=== PATIENT | female | born 1995 | race American Indian/Alaskan Native ===

== ENCOUNTER 2017-08-31 13:25 | Emergency (ER) | payer OTHER ==
[2017-08-31 13:56] VITALS: BP 120/82; PULSE 66; RESP 20; TEMP 98.2; O2SAT 100
--- NOTE | 2017-08-31 15:53 | C.PDOC ---
History Of Present Illness PT WAS CALLED THREE TIMES IN ALL AREA OF ED WITHOUT ANSWER. PT ELOPED PRIOR THE MEDICAL EVALUATION. Time Seen by Provider: 08/31/17 14:38 Chief Complaint (Nursing): Abdominal Pain Past Medical History Vital Signs: Last Vital Signs Temp 98.2 F 08/31/17 13:52 Pulse 66 08/31/17 13:52 Resp 20 08/31/17 13:52 BP 120/82 08/31/17 13:52 Pulse Ox 100 08/31/17 13:52 Family History: States: Unknown Family Hx - Social History Hx Tobacco Use: No Hx Alcohol Use: No Hx Substance Use: Yes - Immunization History Hx Tetanus Toxoid Vaccination: No Hx Influenza Vaccination: No Hx Pneumococcal Vaccination: No ED Course And Treatment O2 Sat by Pulse Oximetry: 100 Disposition - Disposition Disposition: LEFT W/O BEING SEEN - ER ONLY Disposition Time: 14:40 Condition: STABLE Forms: [facility] (Angolan) - Clinical Impression Clinical Impression: Abdominal pain
== END 2017-08-31 14:38 | disposition left against medical advice (07) ==
LOC: C.ER 13:25
DX: Z02.89 Encounter for other administrative examinations (principal); R10.9 Unspecified abdominal pain

== ENCOUNTER 2017-08-31 14:43 | Emergency (ER) | payer OTHER ==
[2017-08-31 14:55] VITALS: PULSE 67; O2SAT 100
[2017-08-31 15:15] LABS: RBC URINE 326 /hpf (0-3); URINE BACTERIA RARE (<OCC); URINE BILIRUBIN NEGATIVE (NEGATIVE); URINE BLOOD 3+ (NEGATIVE); URINE COLOR Yellow (YELLOW); URINE GLUCOSE (UA) NORMAL (Normal); URINE KETONE NEGATIVE (NEGATIVE); URINE LEUKOCYTE ESTERASE NEG Leu/uL (Negative); URINE PROTEIN 1+ mg/dL (NEGATIVE); WBC URINE 8 /hpf (0-5)
--- NOTE | 2017-08-31 15:15 | C.PDOC ---
History Of Present Illness 22 year old female presents to the ED for evaluation of right-sided lower pelvic pain x 2 days. Patient has history of right ovarian cyst; last US showed 4cm right-sided cyst on 07/2017. Patient's LMP was on 08/15. Patient admits to vaginal bleeding yesterday. She denies fever, chills, nausea, vomiting, diarrhea. R LOWER PELVIC PAIN X 2 DAYS. HO R OVARIAN CYST, LAST US 4 CM R SIDE IN 07/2017. LMP 08/15. +VB YESTERDAY. NO FEVER, NVD EXAM MILD DIST NONTOXIC ABD NEG +R PELVIC TEND SOFT NO R/G Time Seen by Provider: 08/31/17 14:54 Chief Complaint (Nursing): Abdominal Pain History Per: Patient History/Exam Limitations: no limitations Onset/Duration Of Symptoms: Days (2) Current Symptoms Are (Timing): Still Present Quality Of Discomfort: "Pain" Associated Symptoms: denies: Fever, Chills, Nausea, Vomiting, Diarrhea Additional History Per: Patient Abnormal Vaginal Bleeding: Yes Last Menstral Period: 08/15/2017 Past Medical History Reviewed: Historical Data, Nursing Documentation, Vital Signs Vital Signs: Last Vital Signs Temp 97.9 F 08/31/17 16:49 Pulse 67 08/31/17 16:49 Resp 20 08/31/17 16:49 BP 105/68 08/31/17 16:49 Pulse Ox 100 08/31/17 23:57 - Medical History PMH: No Chronic Diseases Surgical History: No Surg Hx Family History: States: Unknown Family Hx - Social History Hx Tobacco Use: No Hx Alcohol Use: No Hx Substance Use: Yes - Immunization History Hx Tetanus Toxoid Vaccination: No Hx Influenza Vaccination: No Hx Pneumococcal Vaccination: No Review Of Systems Constitutional: Negative for: Fever, Chills Gastrointestinal: Negative for: Nausea, Vomiting, Diarrhea Genitourinary: Positive for: Vaginal Bleeding, Pelvic Pain (right-sided, lower ) Physical Exam - Physical Exam Appears: Non-toxic, Other (in mild distress ) Skin: Normal Color, Warm, Dry Eye(s): bilateral: Normal Inspection Oral Mucosa: Moist Neck: Supple Chest: Symmetrical, No Deformity, No Tenderness Cardiovascular: Rhythm Regular Respiratory: Normal Breath Sounds Gastrointestinal/Abdominal: Soft, No Tenderness, No Guarding, No Rebound Pelvic: Other (right-sided tenderness) Extremity: Normal ROM Neurological/Psych: Oriented x3, Normal Speech, Normal Cognition Gait: Steady ED Course And Treatment - Laboratory Results Result Diagrams: 08/31/17 15:24 08/31/17 15:24 Urine POC: Negative O2 Sat by Pulse Oximetry: 100 (on RA) Pulse Ox Interpretation: Normal - Other Rad abd/pel/transvaginal US X-Ray: Interpreted by Me, Viewed By Me, Read By Radiologist Interpretation: HISTORY: pain ro torsion. COMPARISON: None available. TECHNIQUE: Transabdominal and transvaginal. FINDINGS: UTERUS: Measures 7.9 x 3.7 x 4.1 cm. Normal in size and appearance. No fibroid or other mass lesion seen. ENDOMETRIUM: Measures 6 mm in diameter. No intrauterine gestational sac identified. CERVIX: No cervical abnormality identified. RIGHT OVARY: Measures 3.9 x 2.1 x 3.7 cm. No solid mass. Normal flow. 1.4 cm corpus luteum cyst. LEFT OVARY: Measures 2.7 x 2.1 x 2.0 cm. No solid mass. Normal flow. FREE FLUID: Small amount of fluid in cul-de-sac/. OTHER FINDINGS: None. IMPRESSION: No intrauterine gestational sac. Please correlate with serial beta HCG evaluation. Cannot exclude ectopic gestation in the absence of an intrauterine gestation. No evidence of ovarian torsion. Progress Note: Labs, Pelvis US, Transvaginal US ordered and reviewed. Morphine IVP, Toradol IVP, and Zofran IVP ordered. Disposition Counseled Patient/Family Regarding: Studies Performed, Diagnosis, Need For Followup, Rx Given - Disposition Referrals: YOUR,OBGYN [Other] Disposition: HOME/ ROUTINE Disposition Time: 16:55 Condition: IMPROVED Prescriptions: Acetaminophen/Codeine [Tylenol/Codeine 300 MG/30 MG] 2 tab PO Q6H #20 tab Ibuprofen [Motrin] 600 mg PO Q6 #30 tab Instructions: Ovarian Cyst (ED) Forms: [facility] (Lao), School Excuse - Clinical Impression Clinical Impression: Ovarian cyst - Scribe Statement The provider has reviewed the documentation as recorded by the Scribe (Erika Baird) Provider Attestation: All medical record entries made by the Scribe were at my direction and personally dictated by me. I have reviewed the chart and agree that the record accurately reflects my personal performance of the history, physical exam, medical decision making, and the department course for this patient. I have also personally directed, reviewed, and agree with the discharge instructions and disposition.
[2017-08-31 15:30] LABS: BASO % 0.4 % (0.0-2.0); EOS # 0.1 K/uL (0.0-0.7); EOS % 2.3 % (0.0-4.0); HEMATOCRIT 36.7 % (34.0-47.0); LYMPH # 1.5 K/uL (1.0-4.3); LYMPH % 23.4 % (20.0-40.0); MEAN CELL VOLUME 83.6 fL (81.0-99.0); MEAN CORPUSCULAR HEMOGLOBIN 27.6 pg (27.0-31.0); MEAN PLATELET VOLUME 8.5 fL (7.2-11.7); MONO # 0.9 K/uL (0.0-0.8); MONO % 14.1 % (0.0-10.0); RED CELL DISTRIBUTION WIDTH 14.3 % (11.5-14.5); WHITE BLOOD COUNT 6.5 K/uL (4.8-10.8)
[2017-08-31 15:37] LABS: CHLORIDE 102 mmol/L (98-107); POTASSIUM 3.5 mmol/L (3.6-5.2); SODIUM 134 mmol/L (132-148)
[2017-08-31 15:40] LABS: BLOOD UREA NITROGEN 10 mg/dL (7-17); CALCIUM 9.2 mg/dl (8.6-10.4); CARBON DIOXIDE 24 mmol/L (22-30); GFR AFRICAN-AMERICAN > 60; GLUCOSE,RANDOM 87 mg/dL (65-105)
[2017-08-31 16:49] VITALS: BP 105/68; RESP 20
[2017-08-31 16:53] VITALS: TEMP 97.9
--- NOTE | 2017-08-31 16:53 | US ---
HISTORY: pain ro torsion COMPARISON: None available. TECHNIQUE: Transabdominal and transvaginal FINDINGS: UTERUS: Measures 7.9 x 3.7 x 4.1 cm. Normal in size and appearance. No fibroid or other mass lesion seen. ENDOMETRIUM: Measures 6 mm in diameter. No intrauterine gestational sac identified. CERVIX: No cervical abnormality identified. RIGHT OVARY: Measures 3.9 x 2.1 x 3.7 cm. No solid mass. Normal flow. 1.4 cm corpus luteum cyst LEFT OVARY: Measures 2.7 x 2.1 x 2.0 cm. No solid mass. Normal flow. FREE FLUID: Small amount of fluid in cul-de-sac/ OTHER FINDINGS: None. IMPRESSION: No intrauterine gestational sac. Please correlate with serial beta HCG evaluation. Cannot exclude ectopic gestation in the absence of an intrauterine gestation. No evidence of ovarian torsion.
== END 2017-08-31 17:37 | disposition home or self-care (01) ==
LOC: C.ER 14:43
DX: N83.201 Unspecified ovarian cyst, right side (principal)
CPT/HCPCS: 76830; 76856; 80048; 81001; 85025; 87086; 96374; 96375; 99285; J1885; J2270; J2405

== ENCOUNTER 2018-03-02 20:36 | Emergency (ER) | payer SELFPAY ==
[2018-03-02 20:51] VITALS: RESP 18; O2SAT 100
[2018-03-02] MEDS ORDERED: Aluminum Hydroxide/Magnesium Hydroxide Susp (30 mL) PO STA (21:09)
[2018-03-02 21:10] LABS: HCG,QUALITATIVE URINE POSITIVE (NEGATIVE)
--- NOTE | 2018-03-02 21:11 | C.PDOC ---
History Of Present Illness 22 year old female with no significant PMHx presents to the ED c/o vague epigastric discomfort that usually starts 30 second after eating food. Patient also states having few episodes of vomiting in the morning, notes the food has string smell which makes her nauseous. Patient states she is sexually active and is not on control, LMP was on early January. Patient denies urinary symptoms, vaginal bleeding, vaginal discharge, back pain, fever, chills, nausea , vomit, diarrhea. Chief Complaint (Nursing): Abdominal Pain History Per: Patient History/Exam Limitations: no limitations Onset/Duration Of Symptoms: Days Current Symptoms Are (Timing): Still Present Context: Food Location Of Pain/Discomfort: Epigastric Radiation Of Pain To:: None Quality Of Discomfort: "Pain" Exacerbating Factors: Food Alleviating Factors: None Last Bowel Movement: Today Recent travel outside of the [place]: No Additional History Per: Patient Abnormal Vaginal Bleeding: No Last Menstral Period: January Past Medical History Reviewed: Historical Data, Nursing Documentation, Vital Signs Vital Signs: Last Vital Signs Temp 98.6 F 03/02/18 21:54 Pulse 68 03/02/18 21:54 Resp 18 03/02/18 21:54 BP 103/66 03/02/18 21:54 Pulse Ox 100 03/02/18 21:54 - Medical History PMH: No Chronic Diseases Surgical History: No Surg Hx Family History: States: Unknown Family Hx - Social History Hx Tobacco Use: No Hx Alcohol Use: No Hx Substance Use: Yes (marijunna) - Immunization History Hx Tetanus Toxoid Vaccination: No Hx Influenza Vaccination: No Hx Pneumococcal Vaccination: No Review Of Systems Constitutional: Negative for: Fever, Chills Cardiovascular: Negative for: Chest Pain Respiratory: Negative for: Shortness of Breath Gastrointestinal: Positive for: Nausea, Vomiting, Abdominal Pain Genitourinary: Negative for: Dysuria Musculoskeletal: Negative for: Back Pain Skin: Negative for: Rash Neurological: Negative for: Weakness, Numbness Physical Exam - Physical Exam Appears: Non-toxic, No Acute Distress Skin: Normal Color, Warm, Dry Head: Atraumatic, Normacephalic Eye(s): bilateral: Normal Inspection Nose: No Discharge Oral Mucosa: Moist Neck: Normal ROM, Supple Chest: Symmetrical Cardiovascular: Rhythm Regular, No Murmur Respiratory: Normal Breath Sounds, No Rales, No Rhonchi, No Wheezing Gastrointestinal/Abdominal: Soft, Tenderness (epigastric), No Guarding, No Rebound Extremity: Normal ROM, No Tenderness, No Swelling Neurological/Psych: Oriented x3 Gait: Steady ED Course And Treatment - Laboratory Results Result Diagrams: 03/02/18 21:27 03/02/18 21:27 O2 Sat by Pulse Oximetry: 100 (ON RA) Pulse Ox Interpretation: Normal Medical Decision Making Medical Decision Making: Impression: gastritis, peptic ulcer, GERD, r/u early Plan: * Labs * Lidocaine 2% 15 ml PO * Maalox 30 ml PO * pepcid 20 mg IVP * Zofran 4 mg IVP * Ua Disposition - Disposition Referrals: Keeley Romo MD [Primary Care Provider] - Disposition: HOME/ ROUTINE Disposition Time: 04:29 Condition: GOOD Prescriptions: Vit No.114/FA/Tamia [Prenate Am Tablet] 1 each PO DAILY #30 tablet Instructions: Nutrition Before and During , Morning Sickness (DC) Forms: [facility] (Kazakh) Print Language: BERMUDIAN - Clinical Impression Clinical Impression: Morning sickness - Scribe Statement The provider has reviewed the documentation as recorded by the Scribe Blaine Bell All medical record entries made by the Scribe were at my direction and personally dictated by me. I have reviewed the chart and agree that the record accurately reflects my personal performance of the history, physical exam, medical decision making, and the department course for this patient. I have also personally directed, reviewed, and agree with the discharge instructions and disposition.
[2018-03-02 21:12] LABS: SQUAMOUS EPITHIAL 5 /hpf (0-5); URINE BILIRUBIN NEGATIVE (NEGATIVE); URINE BLOOD NEGATIVE (NEGATIVE); URINE CLARITY Clear (Clear); URINE COLOR Yellow (YELLOW); URINE GLUCOSE (UA) NORMAL (Normal); URINE LEUKOCYTE ESTERASE NEG Leu/uL (Negative); URINE PROTEIN NEGATIVE (NEGATIVE); URINE UROBILINOGEN NORMAL mg/dL (0.2-1.0)
[2018-03-02] MEDS ORDERED: Aluminum Hydroxide/Magnesium Hydroxide Susp (30 mL) ONE (21:18)
[2018-03-02 21:34] LABS: BASO % 0.5 % (0.0-2.0); EOS # 0.1 K/uL (0.0-0.7); EOS % 0.9 % (0.0-4.0); LYMPH # 2.5 K/uL (1.0-4.3); LYMPH % 37.7 % (20.0-40.0); MEAN CELL VOLUME 81.7 fL (81.0-99.0); MEAN CORPUSCULAR HEMOGLOBIN 27.2 pg (27.0-31.0); MEAN CORPUSCULAR HGB CONC 33.3 g/dL (33.0-37.0); MONO % 14.9 % (0.0-10.0); RBC 4.4 Mil/uL (3.80-5.20); RED CELL DISTRIBUTION WIDTH 13.6 % (11.5-14.5); WHITE BLOOD COUNT 6.5 K/uL (4.8-10.8)
[2018-03-02 21:45] LABS: ALBUMIN 3.9 g/dL (3.5-5.0); ALT/SGPT 16 U/L (9-52); AST/SGOT 23 U/L (14-36); BLOOD UREA NITROGEN 10 mg/dL (7-17); CALCIUM 8.8 mg/dl (8.6-10.4); GFR AFRICAN-AMERICAN > 60; GFR NON-AFRICAN AMERICAN > 60; LIPASE 114 U/L (23-300)
[2018-03-02 21:55] VITALS: BP 103/66; PULSE 68; TEMP 98.6
== END 2018-03-02 21:55 | disposition home or self-care (01) ==
LOC: SUPCPDRO 20:36 → C.ER 20:36
DX: O21.0 Mild hyperemesis gravidarum (principal)
CPT/HCPCS: 80053; 81001; 83690; 84703; 85025; 96374; 96375; 99285; C9113; J2405